=== PATIENT | female | born 1990 | race Caucasian/White ===

== ENCOUNTER → 2017-09-09 | Outpatient (CLI) | payer OTHER ==
[~2017-09-09] MED LIST: DIPATR PO; HYDACE5 PO; MECL25 PO; OXYACE5T PO; RXOXYACE PO; Verotin-Gr Cap1 EACH PO
[2017-09-10 11:28] LABS: Candida species (DNA Probe) Negative (NEGATIVE); G. vaginalis (DNA Probe) Negative (NEGATIVE); T. vaginalis (DNA Probe) Negative (NEGATIVE)
== END ==
LOC: LAB SHORT 14:12
PROVIDERS: Obstetrics & Gynecology
DX: N76.0 Acute vaginitis (principal)
CPT/HCPCS: 87480; 87510; 87660

== ENCOUNTER → 2018-10-08 | Outpatient (CLI) | payer OTHER | END | disposition home or self-care (01) | LOC: LAB 15:05 → LAB SHORT 15:05 | PROVIDERS: Obstetrics & Gynecology | DX: Z01.419 Encounter for gynecological examination (general) (routine) without abnormal findings (principal) | CPT/HCPCS: G0123 ==